=== PATIENT | female | born 1995 | race Caucasian/White ===

== ENCOUNTER 2025-07-09 16:36 | Emergency (ER) | payer SELFPAY ==
[2025-07-09 17:57] LABS: BHCG - Serum Negative (NEGATIVE); Pregs Control Background? CLEAR/WHITE (CLR/WHITE); Pregs Control Bar Appear? YES (CONTROL BAR)
[2025-07-09 18:22] LABS: CAUTI Indications for Culture Dysuria,urgency,freq; Glucose, Urine (Dipstick) Normal (Negative); Leukocyte 500 Leu/uL (Negative); Protein, Urine (Dipstick) 20 mg/dL (Neg-Trace); RBC/HPF 21-50 HPF (0-3); Specific Gravity, Urine 1.031 (1.002-1.036); WBC/HPF Greater than 50 HPF (0-3)
[2025-07-09 18:23] LABS: Bacteria/HPF 1+ HPF (None Seen)
[2025-07-09 18:25] LABS: Urine Culture Reflex Yes Yes
== END 2025-07-09 18:45 | disposition home or self-care (01) ==
LOC: ERS 16:36
DX: J18.9 Pneumonia, unspecified organism (principal); N39.0 Urinary tract infection, site not specified
CPT/HCPCS: 36415; 71046; 81001; 84703; 87081; 87086; 87428; 87430; 96372; J2919

== ENCOUNTER 2025-07-27 09:14 | Emergency (ER) | payer SELFPAY ==
[2025-07-27 09:49] LABS: Bacteria/HPF None Seen HPF (None Seen); CAUTI Indications for Culture Pelvic or flank pain; Glucose, Urine (Dipstick) Normal (Negative); Leukocyte Negative Leu/uL (Negative); Pregnancy Test - Urine (BHCG) Negative (Negative); Pregu Control Background? CLEAR/WHITE (CLR/WHITE); Pregu Control Bar Appear? YES (CONTROL BAR); Protein, Urine (Dipstick) Negative (Neg-Trace); RBC/HPF 0-3 HPF (0-3); Specific Gravity, Urine 1.022 (1.002-1.036); WBC/HPF 0-3 HPF (0-3)
[2025-07-27 09:50] LABS: Urine Culture Reflex No No
[2025-07-27 10:04] LABS: Hematocrit 36.6 % (36.0-47.0); Hemoglobin 11.0 g/dL (12.0-16.0); Mean Corpuscular Hemoglobin 22.4 pg (27.0-31.0); Mean Corpuscular Volume 74.4 fL (78.0-98.0); Platelet Count 345 10x3/uL (130-400); Red Blood Cell (RBC) Count 4.92 mill/uL (4.20-5.40); White Blood Cell (WBC) Count 9.04 10x3/uL (4.8-10.8)
[2025-07-27 10:16] LABS: INR-International Normal Ratio 1.0; Prothrombin Time 13.7 sec (12.0-14.7)
[2025-07-27 10:17] LABS: PTT 40.5 sec (22.9-36.1)
[2025-07-27] MEDS ORDERED: Mag-Al 1200 mg/1200 mg/30 ML UDCUP ONE (10:18)
[2025-07-27] MEDS ORDERED: Lidocaine Viscous Sol 2% 15 ml UD Cup ONE (10:18)
[2025-07-27 10:19] LABS: ALT (SGPT) 10 U/L (Less than 34); AST (SGOT) 15 U/L (11-34); Albumin 3.6 g/dL (3.1-4.5); Alkaline Phosphatase 99 U/L (40-110); Anion Gap 12 mmol/L (10-20); BUN (Urea Nitrogen) 12 mg/dL (7.0-18.7); Bilirubin, Total 0.2 mg/dL (0.3-1.2); Calc. Creatinine Clearance 0 mL/min (70-130); Calcium 8.8 mg/dL (7.8-10.44); Carbon Dioxide 26 mmol/L (22-29); Chloride 108 mmol/L (98-107); Globulin 3.2 g/dL (2.4-3.5); Glucose 87 mg/dL (70-105); Potassium 3.7 mmol/L (3.5-5.1); Sodium 142 mmol/L (136-145)
[2025-07-27 10:26] LABS: Ovalocytes SLIGHT = 2-5 cells HPF (0-1); Platelet Adequacy Comment Platelets Normal; Polychromasia SLIGHT = 2-3 cells HPF (0-2)
== END 2025-07-27 10:25 | disposition home or self-care (01) ==
LOC: ERS 09:14
DX: N93.9 Abnormal uterine and vaginal bleeding, unspecified (principal); J45.909 Unspecified asthma, uncomplicated; Z79.51 Long term (current) use of inhaled steroids
CPT/HCPCS: 80053; 81001; 81025; 85025; 85610; 85730; 99284

== ENCOUNTER 2025-08-06 13:09 | Emergency (ER) | payer MEDICAID, SELFPAY | END 2025-08-06 14:58 | disposition home or self-care (01) | LOC: ERS 13:09 | DX: J06.9 Acute upper respiratory infection, unspecified (principal); J45.909 Unspecified asthma, uncomplicated; Z79.51 Long term (current) use of inhaled steroids | CPT/HCPCS: 87428; 93005; 96372; 99283 ==